=== PATIENT | male | born 1965 | race African-American/Black ===

== ENCOUNTER 2024-12-12 03:43 | Emergency (ER) | payer SELFPAY ==
[2024-12-12 03:47] VITALS: BP 155/67; PULSE 54; PULSE 64; RESP 18; RESP 19; TEMP 36.7; O2SAT 96; O2SAT 98; BMI 23.6
[2024-12-12 03:52] VITALS: BP 165/91; PULSE 54; RESP 19; TEMP 36.6; O2SAT 97
[2024-12-12 05:12] LABS: Troponin I < 0.020 ng/mL (0.0-0.045)
--- NOTE | 2024-12-12 05:26 | PD.EDMEDCL ---
ED Medical Clearance RME/HPI General Chief complaint: Chest Pain Stated complaint: MEDICAL CLEARANCE Time Seen by Provider: 12/12/24 03:54 Arrival date/time: 12/12/24 03:43 RME / HPI RME / HPI Narrative: Dr. Lees?s Main ED Evaluation: 58yo male BAN accompanied by PPD presents to the ED for a medical clearance. Patient states he's had constant left-sided chest pain that radiates to his face x this morning. EMS administered Aspirin 162mg, 1 tablet of nitroglycerin sublingual, and 1 inch of nitropaste en route. Patient denies any N/V, dizziness, lightheadedness, shortness of breath, cough, fever, chills or any other associated symptoms. Patient denies being on aspirin or blood thinners. NKA. Related Information Allergies Allergy/AdvReac Type Severity Reaction Status Date / Time No Known Allergies Allergy Verified 12/12/24 03:50 Review of Systems Review of Systems Systems Reviewed: All systems reviewed, normal except as documented Past Medical History Past Medical History CARDIAC: Positive Hypertension; Negative Congestive Heart Failure RESPIRATORY: Negative Chronic Obstructive Pulmonary Disease (COPD) GENITOURINARY: Negative Renal Disease ENDOCRINE: Positive Diabetes Mellitus Type 1; Negative Diabetes Mellitus Type 2 Social History SMOKING STATUS: Never smoker ED Exam Narrative Physical exam: GENERAL APPEARANCE: alert and oriented x 4, well-developed, well-nourished, no acute distress VITALS: All vitals were reviewed and the pulse ox is 97% on room air, which is normal according to my interpretation. HEENT: Normocephalic, atraumatic; pupils equal, round, reactive to light; EOMI; mucous membranes pink, moist; oropharynx clear NECK: Supple LUNGS: CTABL; no wheezes, no rales, no rhonchi HEART: Regular rate, regular rhythm; normal S1, S2; no murmurs ABDOMEN: non distended; normal BS; soft, no tenderness, no guarding, no rebound; no masses, no organomegaly, no hernia BACK: no CVA tenderness EXTREMITIES: atraumatic; no edema NEUROLOGIC: awake; alert and oriented x4; cranial nerves II-XII grossly intact; no focal sensory or motor deficits PSYCHIATRIC: appropriate mood and affect SKIN: warm, dry, normal color; no rashes Course Quality Measures none Orders Category Date Time Status EKG (ED ONLY) *Do not use* NOW Care 12/12/24 03:45 Completed EKG (ED Only) Stat Exams 12/12/24 03:45 Ordered Troponin I Stat Lab 12/12/24 04:30 Completed Aspirin Chew Med 12/12/24 05:24 Discontinued 324 mg PO X1 ONE Vital Signs Vital signs: Vital Signs Temperature 97.8 F 12/12/24 03:52 Pulse Rate 54 L 12/12/24 03:52 Respiratory Rate 19 12/12/24 03:52 Blood Pressure 165/91 H 12/12/24 03:52 Pulse Oximetry (%) 97 12/12/24 03:52 Medical Clearance MDM Narrative MDM Narrative:: Scribe Attestation: 12/12/24 - Ade Espinal am scribing for and in the presence of Dr. Lees. Patient data External records reviewed:: [facility] previous records (Per chart review, patient has no previous ED visits or admissions to this facility.) Clinical information provided by:: patient Social determinants that could affect healthcare access:: none Patient has the following chronic illnesses:: DMI, HTN How is presenting disease/condition affected by chronic disease/condition?: uneffected by Evaluation data The following diagnostics were reviewed and interpreted by me:: lab results and EKG tracing(s) Lab and/or radiology exams considered but not ordered:: none Interpretation Summary: Troponin normal. EKG done at 0343, sinus bradycardia, rate of 57, normal axis, normal intervals, no acute ischemia, according to my interpretation. Medications / Prescriptions Medications or Prescriptions considered but not ordered:: none Medication administrations:: Medication Administration History Discontinued Medications Aspirin (Aspirin 81 Mg Chew) 324 mg PO X1 ONE Stop: 12/12/24 05:25 Last Admin: 12/12/24 05:37 Dose: Not Given Documented By: NIA Non-Admin Reason: Change of Condition see above Consultations Consultation(s) initiated? (list below): No Diagnosis Medical Clearance Differential Diagnosis: other (ACS, musculoskeletal pain, PE, pneumonia) Most likely diagnosis given after review of the tests above:: see clinical impression below Admission Indicated Admission indicated?: not indicated Admission Request Was there a request for admission?: No Disposition Plan Disposition Plan: Discharge Discharge Attestation Discharge Attestation: The patient and all family members were given an opportunity to ask questions and understood the discharge instructions. Discharge instructions specifically effects, indications for sooner follow up or return to the emergency department, and the expected course of current diagnosis. Patient condition: Stable Discharge Plan Plan Patient Disposition: Nursing Home/Court/Law Discharge Disposition comment: Okay to book Problem List Clinical Impression: Chest pain, Medical clearance for incarceration Patient/Caregiver Discharge Instructions Education Materials: ED Chest Pain, Uncertain Cause Print Language: Lithuanian
== END 2024-12-12 06:06 ==
LOC: SERX 06:20
PROVIDERS: Emergency Provider Emergency Medicine
DX: Z02.89 Encounter for other administrative examinations (principal); R07.89 Other chest pain
CPT/HCPCS: 36415; 84484; 93005; 99283

== ENCOUNTER 2024-12-13 18:11 | Emergency (ER) | payer OTHER, SELFPAY ==
[2024-12-13 18:14] VITALS: BP 149/93; BP 157/103; PULSE 70; RESP 18; TEMP 36.9; O2SAT 98
[2024-12-13 18:15] VITALS: BMI 23.3
--- NOTE | 2024-12-13 18:31 | EKG_ITS ---
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
--- NOTE | 2024-12-13 18:34 | EDNOTE_ITS ---
ED Medical Clearance RME/HPI General Chief complaint: Medical Clearance Stated complaint: MEDICAL CLEARANCE Time Seen by Provider: 12/13/24 18:33 Arrival date/time: 12/13/24 18:11 RME / HPI RME / HPI Narrative: DR LEES MAIN ED EVALUATION: 58 y/o male with Hx of [place], Hypertension and Type I DM presents to ED BIB [facility] c/o constant left-sided chest pain x 2 days. 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 Patient denies any other associated symptoms or aggravating factors. No modifying factors, no radiation, no migration. No other concerns or complaints expressed at this time. Related Information Allergies Allergy/AdvReac Type Severity Reaction Status Date / Time No Known Allergies Allergy Verified 12/12/24 03:50 Review of Systems Review of Systems Systems Reviewed: All systems reviewed, normal except as documented Past Medical History Past Medical History CARDIAC: Positive Hypertension ENDOCRINE: Positive Diabetes Mellitus Type 1 ED Exam Narrative Physical exam: GENERAL APPEARANCE: alert and oriented x 4, well-developed, well-nourished, no acute distress VITALS: All vitals were reviewed and the pulse ox is 94% on room air, which is normal according to my interpretation. HEENT: Normocephalic, atraumatic; pupils equal, round, reactive to light; EOMI; mucous membranes pink, moist; oropharynx clear NECK: Supple LUNGS: CTABL; no wheezes, no rales, no rhonchi HEART: Regular rate, regular rhythm; normal S1, S2; hyperdynamic precordium, 2/6 systolic murmur heard best atleft sternal border radiating to the axilla ABDOMEN: non distended; normal BS; soft, no tenderness, no guarding, no rebound; no masses, no organomegaly, no hernia BACK: no CVA tenderness EXTREMITIES: atraumatic; no edema NEUROLOGIC: awake; alert and oriented x4; cranial nerves II-XII grossly intact; no focal sensory or motor deficits PSYCHIATRIC: appropriate mood and affect SKIN: warm, dry, normal color; no rashes Course Course Course Narrative: CXR is ordered for determining the etiology of chest pain. Quality Measures none Orders Category Date Time Status EKG (ED ONLY) *Do not use* NOW Care 12/13/24 18:31 Completed EKG (ED Only) Stat Exams 12/13/24 18:31 Draft XR chest 1V portable Stat Exams 12/13/24 18:33 Completed B-Type Natriuretic Peptide Stat Lab 12/13/24 18:46 Completed CBC Stat Lab 12/13/24 18:46 Completed Comprehensive Metabolic Panel Stat Lab 12/13/24 18:46 Completed Drug Screen,Urine Stat Lab 12/13/24 18:47 Ordered Lipase Stat Lab 12/13/24 18:46 Completed Magnesium Stat Lab 12/13/24 18:46 Completed Troponin I Stat Lab 12/13/24 18:46 Completed Troponin I Stat Lab 12/13/24 22:10 Completed UA, C/S IF [Urinalysis, C/S if Indicated] Stat Lab 12/13/24 18:34 Ordered Aspirin Chew Med 12/13/24 19:00 Discontinued 324 mg PO X1 ONE HYDROcodone*/APAP 5/325 [Gamerco 5/325] Med 12/13/24 21:42 Discontinued 1 tab PO X1 ONE Nitroglycerin [Nitrostat 1/150] Med 12/13/24 19:02 Active 0.4 mg SL Q5MIN PRN Vital Signs Vital signs: Vital Signs Temperature 98.5 F 12/13/24 18:14 Pulse Rate 70 12/13/24 18:14 Respiratory Rate 18 12/13/24 18:14 Blood Pressure 157/103 H 12/13/24 18:14 Pulse Oximetry (%) 98 12/13/24 18:14 Oxygen Delivery Method Room Air 12/13/24 18:14 Medical Clearance MDM Narrative MDM Narrative:: Scribe Attestation: IAmelia am scribing for and in the presence of Dr. Lees. Provider Notation: Although this document has been carefully reviewed, there may still be some phonetic and other typographical errors.? These errors are purely grammatical due to imperfections in the software program and should not be construed in any way to? compromise the substance of the patient's medical care during this visit. Patient data External records reviewed:: [facility] previous records (Reviewed prior ED records from 12/12/24. Patient was seen for Chest pain.) Clinical information provided by:: patient and law enforcement Social determinants that could affect healthcare access:: housing (Incarceration) Patient has the following chronic illnesses:: HTN, Type I DM How is presenting disease/condition affected by chronic disease/condition?: exacerbated by Evaluation data The following diagnostics were reviewed and interpreted by me:: lab results, radiology exam(s) and EKG tracing(s) (EKG manual reading, my interpretation: sinus rhythm, rate: 58 bpm, Q-waves in leads III, V1 and V2, Flatening of ST segment in V1 and V2, 1st degree AV block.) Lab and/or radiology exams considered but not ordered:: None Interpretation Summary: RADIOLOGY Chest X-Ray: Patient: PARKER MCWILLIAMS [facility]. Record#: [id number] Birthdate: 1965 Age/Sex: 58 / M Location: [facility] Attending Dr: Ordering Physician: Vera Lees MD Date of Service: 12/13/24 Procedure(s): XR chest 1V portable Accession Number(s): [id number] cc: Damion Robins MD; NO PRIMARY/FAMILY,PHYSICIAN; Vera Lees MD~ Examination: AP chest single view TECHNIQUE: AP portable upright chest single view Date and time: December 13, 2024 1850 hours INDICATIONS: Chest pain and shortness of breath and weakness beginning today FINDINGS: Normal heart size Lungs are clear. The osseous structures are intact IMPRESSION: No active disease Dictated By: Damion Robins MD Signed By: <Electronically signed by Damion Robins MD in OV> 12/13/241955 Medications / Prescriptions Medications or Prescriptions considered but not ordered:: None Medication administrations:: Medication Administration History Nitroglycerin (Nitroglycerin 0.4 Mg Subl Btl #25) 0.4 mg SL Q5MIN PRN PRN Reason: CHEST PAIN Last Admin: 12/13/24 19:27 Dose: 0.4 mg Documented By: BD Discontinued Medications Hydrocodone Bitart/Acetaminophen (Hydrocodone/Apap 5/325 Tablet) 1 tab PO X1 ONE Stop: 12/13/24 21:43 Last Admin: 12/13/24 21:48 Dose: 1 tab Documented By: LILI Aspirin (Aspirin 81 Mg Chew) 324 mg PO X1 ONE Stop: 12/13/24 19:01 Last Admin: 12/13/24 19:26 Dose: 324 mg Documented By: LILI See above if any. Consultations Consultation(s) initiated? (list below): No Diagnosis Medical Clearance Differential Diagnosis: other ( GI reflux disease, pulmonary embolisms, Peptic ulcerr, Acute [place], Costochondritis, Chest wall pain) Most likely diagnosis given after review of the tests above:: Chest pain, Medical clearance for incarceration. Admission Indicated Admission indicated?: not indicated Explain why admission is indicated or not indicated:: Patient does not meet admission criteria. Admission Request Was there a request for admission?: No Disposition Plan Disposition Plan: Discharge (to [facility] for incarceration.) Discharge Attestation Discharge Attestation: The patient and all family members were given an opportunity to ask questions and understood the discharge instructions. Discharge instructions specifically effects, indications for sooner follow up or return to the emergency department, and the expected course of current diagnosis. Patient condition: Stable Discharge Plan Plan Patient Disposition: Penitentiary/Court/Law Discharge Disposition comment: Okay to book Prescriptions/Referrals Referrals: No Primary/Family,Physician [Primary Care Provider] - In 1 week Problem List Clinical Impression: Chest pain, Medical clearance for incarceration Patient/Caregiver Discharge Instructions Education Materials: ED Chest Pain, Uncertain Cause Print Language: Andorran
[2024-12-13 18:54] LABS: Basophils % (Auto) 0 % (0-2.5); Eosinophils # (Auto) 0.1 Thou/mm3 (0.0-0.5); Eosinophils % (Auto) 2 % (0-10); Hematocrit 37.5 % (41.0-53.0); Immature Granulocytes % (Auto) 0 % (0-0); Immature Granulocytes Auto 0.01 Thou/mm3 (0.00-0.00); Lymphocytes # (Auto) 1.5 Thou/mm3 (1.0-4.8); Lymphocytes % (Auto) 22 % (10-50); Mean Corpuscular HGB Conc 34.7 g/dl (31.0-37.0); Mean Corpuscular Hemoglobin 29.9 pg (25.0-35.0); Mean Corpuscular Volume 86 fL (80-100); Monocytes # (Auto) 0.3 Thou/mm3 (0.0-0.8); Monocytes % (Auto) 4 % (0-12); Neutrophils # (Auto) 4.9 Thou/mm3 (1.8-7.7); Neutrophils % (Auto) 72 % (37-80); Nucleated Red Blood Cell % 0 /100 WBC (0); Platelet Count 301 Thou/mm3 (140-440); Red Blood Count 4.35 Miln/mm3 (4.50-5.90); White Blood Count 6.8 Thou/mm3 (3.8-10.6)
[2024-12-13 19:22] LABS: B-Type Natriuretic Peptide 109 pg/mL (0-100)
[2024-12-13] MEDS: ASPIRIN 81 MG CHEW 324 MG PO (19:26)
[2024-12-13 19:27] VITALS: BP 180/101; PULSE 60
[2024-12-13] MEDS: NITROGLYCERIN 0.4 MG SUBL BTL #25 SL (19:27)
[2024-12-13 19:28] LABS: Alanine Aminotransferase 9 U/L (10-49); Albumin, Serum 4.5 gm/dL (3.5-5.0); Albumin/Globulin Ratio 1.6 (1.2-2.2); Alkaline Phosphatase 86 U/L (46-116); Anion Gap 11 (7-16); Aspartate Amino Transferase 19 U/L (0-34); BUN/Creatinine Ratio 15 Ratio (12-20); Bilirubin,Total 0.3 mg/dL (0.3-1.2); Blood Urea Nitrogen 17 mg/dL (9-23); Calcium 9.7 mg/dL (8.3-10.6); Calcium (Corrected) 9.7 mg/dL (8.5-10.1); Carbon Dioxide 26.1 mMol/L (20.0-31.0); Chloride 103 mMol/L (98-107); Creatinine (Component) 1.1 mg/dL (0.6-1.3); Estimated Creatinine Clearance 64.5 mL/min (>60); Globulin 2.8 gm/dL (2.3-3.5); Glucose 145 mg/dL (74-106); Lipase 26 U/L (12-53); Magnesium 1.9 mg/dL (1.6-2.6); Osmolality,Calculated 283 (275-295); Potassium 3.6 mMol/L (3.4-5.1); Sodium 140 mMol/L (136-145); Total Protein 7.3 gm/dL (5.7-8.2); Troponin I < 0.020 ng/mL (0.0-0.045); eGFR > 60 See Note
[2024-12-13 19:52] VITALS: BP 171/105; PULSE 58
[2024-12-13 20:34] VITALS: BP 150/77; PULSE 58; RESP 22; TEMP 37; O2SAT 96
[2024-12-13] MEDS: HYDROcodone/APAP 5/325 TABLET 1 TAB PO (21:48)
[2024-12-13 22:00] VITALS: BP 112/75; PULSE 79; RESP 16; TEMP 36.9; O2SAT 94
[2024-12-13 22:45] LABS: Troponin I < 0.020 ng/mL (0.0-0.045)
[2024-12-13 23:00] VITALS: BP 166/99; PULSE 55; RESP 16; TEMP 37; O2SAT 98
== END 2024-12-13 23:43 ==
PROVIDERS: Emergency Provider Emergency Medicine
DX: Z02.89 Encounter for other administrative examinations (principal); R07.9 Chest pain, unspecified; R06.02 Shortness of breath; R53.1 Weakness; I10 Essential (primary) hypertension
CPT/HCPCS: 36415; 71045; 80053; 80307; 81001; 83690; 83735; 83880; 84484; 85025; 85610; 85730; 93005; 99283; A9270